=== PATIENT | male | born 2005 | race Two or more races ===

== ENCOUNTER 2025-09-18 10:28 | Emergency (ER) | payer OTHER ==
[~2025-09-18] VITALS: Ht 175.3 cm; Wt 63.0 kg
[2025-09-18 10:38] VITALS: TEMP 98
[2025-09-18] MEDS ORDERED: IBUPROFEN 600 MG TABLET ONE (11:16)
[2025-09-18] MEDS: IBUPROFEN 600 MG TABLET PO ONE (11:19)
[2025-09-18 11:50] VITALS: BP 118/70; O2SAT 98
== END 2025-09-18 11:51 | disposition home or self-care (01) ==
LOC: ER 10:33
DX: S93.602A Unspecified sprain of left foot, initial encounter (principal); X50.1XXA Overexertion from prolonged static or awkward postures, initial encounter; Y93.41 Activity, dancing; Y92.89 Other specified places as the place of occurrence of the external cause; Y99.9 Unspecified external cause status
CPT/HCPCS: 73610-TC; 73630-TC